=== PATIENT | female | born 1960 | race Caucasian/White ===

== ENCOUNTER 2018-10-04 08:30 | Outpatient (CLI) | payer OTHER ==
[2018-10-04] MEDS ORDERED: GADOBUTROL 7.5 MMOL/7.5 ML PFS ONE (09:45)
== END 2018-10-04 23:59 | disposition home or self-care (01) ==
LOC: RAD 08:30
PROVIDERS: ATTEND Registered Nurse Registered Nurse First Assistant
DX: M51.16 Intervertebral disc disorders with radiculopathy, lumbar region (principal); M47.26 Other spondylosis with radiculopathy, lumbar region; M48.061 Spinal stenosis, lumbar region without neurogenic claudication; M48.07 Spinal stenosis, lumbosacral region; I10 Essential (primary) hypertension; J45.909 Unspecified asthma, uncomplicated; Z91.048 Other nonmedicinal substance allergy status
CPT/HCPCS: 72110; 72158; A9585

== ENCOUNTER → 2019-02-03 | Outpatient (CLI) | payer OTHER ==
[~2019-02-03] MED LIST: BECL10.62 INH; CYCL5TAB PO; GABA600T7 PO; LINA290C PO; LOSA50TA14 PO; VERA240C4 PO
[2019-02-03 13:41] LABS: MICROSCOPIC NOT IND
[2019-02-03 13:46] LABS: CULTURE INDICATED? NO
[2019-02-03 14:03] LABS: BASOPHILS # (AUTO) 0.03 x10^3/uL (0-0.1); BASOPHILS % (AUTO) 1 % (0-1); EOSINOPHILS # (AUTO) 0.05 x10^3/uL (0-0.4); EOSINOPHILS % (AUTO) 1 % (1-7); LYMPHOCYTES # (AUTO) 1.66 x10^3/uL (1-3.4); LYMPHOCYTES % (AUTO) 34 % (22-44); MD NO; MEAN CORPUSCULAR HEMOGLOBIN 39.8 pg (27.0-34.8); MEAN CORPUSCULAR HGB CONC 35.7 g/dL (32.4-35.8); MEAN CORPUSCULAR VOLUME 111.6 fL (80-100); MEAN PLATELET VOLUME 7.1 fL (7.4-10.4); MONOCYTES # (AUTO) 0.35 x10^3/uL (0.2-0.8); MONOCYTES % (AUTO) 7 % (2-9); NEUTROPHILS # (AUTO) 2.76 x10^3/uL (1.8-6.8); NEUTROPHILS % (AUTO) 57 % (42-75); PLATELET COUNT 335 x10^3/uL (130-400); RED BLOOD COUNT 3.36 x10^6/uL (3.82-5.3); RED CELL DISTRIBUTION WIDTH 13.9 % (9.6-15.2)
[2019-02-03 14:07] LABS: ALBUMIN 3.9 g/dL (3.4-5.0); ANION GAP 8 mmol/L (5-15); CALCIUM 9.2 mg/dL (8.5-10.1); CHLORIDE 107 mmol/L (98-107)
[2019-02-03 14:09] LABS: INTERNATIONAL NORMALIZED RATIO 0.99 (0.93-1.1); PROTHROMBIN TIME 10.4 Seconds (9.6-11.5)
[2019-02-03 14:11] LABS: ALANINE AMINOTRANSFERASE 55 U/L (12-78); ALKALINE PHOSPHATASE 39 U/L (45-117); BILIRUBIN,TOTAL 0.6 mg/dL (0.2-1.0); CREATININE 0.68 mg/dL (0.55-1.02); TOTAL PROTEIN 6.8 g/dL (6.4-8.2)
== END | disposition home or self-care (01) ==
LOC: STAR 12:23
PROVIDERS: ATTEND Neurological Surgery
DX: Z01.818 Encounter for other preprocedural examination (principal); I21.09 ST elevation (STEMI) myocardial infarction involving other coronary artery of anterior wall; M47.814 Spondylosis without myelopathy or radiculopathy, thoracic region; M51.36 Other intervertebral disc degeneration, lumbar region; I10 Essential (primary) hypertension
CPT/HCPCS: 36415; 71046; 80053; 81003; 85025; 85610; 85730; 93005

== ENCOUNTER 2019-02-16 05:32 | Day surgery (SDC) | payer OTHER ==
[~2019-02-16] VITALS: Ht 167.6 cm; Wt 55.1 kg
[2019-02-16] MEDS ORDERED: LACTATED RINGERS 1,000 ML IV SCH (06:18)
[2019-02-16] MEDS ORDERED: BUPIVACAINE/PF 0.25% ONE (06:20)
[2019-02-16 06:21] VITALS: BP 144/88
[2019-02-16] MEDS ORDERED: THROMBIN 5,000 UNIT VIAL TP ONE (06:21)
[2019-02-16] MEDS ORDERED: BACITRACIN 50,000 UNIT ONE (06:21)
[2019-02-16] MEDS ORDERED: EPINEPHRINE 1 MG/ML, 1ML ONE (06:21)
[2019-02-16] MEDS ORDERED: VANCOMYCIN 1,000 MG ONE (06:21)
[2019-02-16] MEDS ORDERED: MIDAZOLAM 1 MG/ML, 2ML ONE (06:58)
[2019-02-16] MEDS ORDERED: FENTANYL PF 250 MCG/5ML ONE (06:58)
[2019-02-16] MEDS ORDERED: MEPERIDINE/PF 25MG/0.5ML IVPush PRN (07:00)
[2019-02-16] MEDS ORDERED: ACETAMINOPHEN 500 MG TABLET PO ONE (07:00)
[2019-02-16] MEDS ORDERED: FENTANYL PF 100 MCG/2ML IV PRN (07:00)
[2019-02-16] MEDS ORDERED: LABETALOL 5MG/ML, 20ML IV PRN (07:00)
[2019-02-16] MEDS ORDERED: ALBUTEROL SULFATE 2.5 MG/3 ML NPPB PRN (07:00)
[2019-02-16] MEDS ORDERED: PROMETHAZINE 25 MG/ML, 1ML IV PRN (07:00)
[2019-02-16] MEDS ORDERED: GABAPENTIN 300 MG CAPSULE PO ONE (07:00)
[2019-02-16] MEDS ORDERED: HALOPERIDOL 5 MG/ML IV PRN (07:00)
[2019-02-16] MEDS ORDERED: hydrALAzine 20 MG/ML, 1ML IV PRN (07:00)
[2019-02-16] MEDS ORDERED: PROCHLORPERAZINE 5 MG/ML, 2ML IV PRN (07:00)
[2019-02-16] MEDS ORDERED: OXYcodone 5 MG/5 ML ORAL.SOL UDC PO PRN (07:00)
[2019-02-16] MEDS ORDERED: DIPHENHYDRAMINE 50 MG/ML, 1ML IVPush PRN (07:00)
[2019-02-16] MEDS ORDERED: METOPROLOL 1 MG/ML, 5ML IV PRN (07:00)
[2019-02-16] MEDS ORDERED: BUPIVACAINE/PF 0.25% INFIL ONE ×2 (07:31)
[2019-02-16] MEDS ORDERED: FENTANYL PF 100 MCG/2ML ONE (07:52)
[2019-02-16] MEDS ORDERED: methylPREDNISolone SOD SUCC 125 MG/2 ML ONE (07:53)
[2019-02-16] MEDS ORDERED: PROPOFOL 10 MG/ML, 20ML ONE (07:59)
[2019-02-16] MEDS ORDERED: methylPREDNISolone SOD SUCC 125 MG/2 ML IVPush ONE (07:59)
[2019-02-16] MEDS ORDERED: DEXAMETHASONE 4 MG/ML, 1ML ONE (07:59)
[2019-02-16] MEDS ORDERED: ONDANSETRON 2MG/ML, 2ML ONE (07:59)
[2019-02-16] MEDS ORDERED: SUCCINYLCHOLINE 20 MG/ML, 10ML ONE (07:59)
[2019-02-16] MEDS ORDERED: CEFAZOLIN 1,000 MG ONE (07:59)
[2019-02-16] MEDS ORDERED: GLYCOPYRROLATE 0.2MG/1ML, 5ML ONE ×2 (07:59→08:04)
[2019-02-16] MEDS ORDERED: ROCURONIUM 10MG/ML,5ML ONE (07:59)
[2019-02-16] MEDS ORDERED: NEOSTIGMINE 1 MG/ML, 10ML ONE ×2 (07:59→08:04)
[2019-02-16] MEDS ORDERED: SUGAMMADEX 200 MG/2 ML IVPush ONE (08:00)
[2019-02-16] MEDS ORDERED: FENTANYL PF 100 MCG/2ML EPIDPUSH ONE (08:00)
[2019-02-16] MEDS ORDERED: BACITRACIN ZINC OINT 500U/GM, 0.9 GM ONE (08:27)
[2019-02-16] MEDS ORDERED: CYCL-259 PO (08:35)
[2019-02-16] MEDS ORDERED: OXYC-432 PO (08:35)
[2019-02-16] MEDS ORDERED: HYDROmorphone 2 MG/ML, 1ML ONE (08:44)
[2019-02-16] MEDS ORDERED: OXYcodone 5 MG/5 ML ORAL.SOL UDC ONE (08:45)
[2019-02-16] MEDS: HYDROmorphone 2 MG/ML, 1ML IVPush PRN ×2 (08:49→09:01)
== END 2019-02-16 11:35 | disposition home or self-care (01) ==
LOC: OUT 05:32
PROVIDERS: ATTEND Neurological Surgery
DX: M54.16 Radiculopathy, lumbar region (principal); M48.061 Spinal stenosis, lumbar region without neurogenic claudication; I10 Essential (primary) hypertension; J45.909 Unspecified asthma, uncomplicated; Z87.39 Personal history of other diseases of the musculoskeletal system and connective tissue; Z98.890 Other specified postprocedural states; Z72.89 Other problems related to lifestyle
CPT/HCPCS: 63047; 72100; J0171; J0330; J0690; J1100; J1170; J2250; J2405; J2704; J2710; J2930; J3010; J3490; J7120; J3370

== ENCOUNTER 2020-04-08 17:20 | Day surgery (SDC) | payer OTHER ==
[~2020-04-08] VITALS: Ht 167.6 cm; Wt 54.0 kg
[~2020-04-08 17:20] MED LIST changes: +CYCL-259 PO; +OXYC1TAB18 PO
[2020-04-08] MEDS ORDERED: ONDANSETRON 2MG/ML, 2ML ONE ×2 (17:38→22:44)
[2020-04-08] MEDS ORDERED: MORPHINE SULFATE 4 MG/ML, 1ML ONE ×2 (17:39→17:47)
[2020-04-08] MEDS: MORPHINE SULFATE 4 MG/ML, 1ML IVPush PRN ×2 (17:43→18:00)
--- NOTE | 2020-04-08 17:45 | NUR ---
PATIENT MEDICATED PER EMAR, PRIOR TO XRAY
--- NOTE | 2020-04-08 17:53 | NUR ---
THIS IS A 59 YO FEMALE BIB [facility] FROM HOME FOR LEFT HIP DISLOCATION AFTER SHOWER. PATIENT HAD HIP REPLACEMENT SX IN JANUARY 2020, THIS IS THE THIRD DISLOCATION SINCE SX ALL REQUIRING CONSCIOUS SEDATION FOR REDUCTION. 200MCG FENTANYL GIVEN EN ROUTE, 1MG VERSED. MEDICAL HX CONSISTS OF HTN AND ASTHMA. A&OX4, VSS, NADN AT THIS TIME. ALL MONITORING IN PLACE, NSR ON UTILIZATION SPECIALIST. CALL LIGHT IN REACH
--- NOTE | 2020-04-08 17:54 | NUR ---
BESSEMER CONVERTER OPERATOR IN ROOM
[2020-04-08] MEDS ORDERED: ONDANSETRON 2MG/ML, 2ML IVPush ONE (18:00)
--- NOTE | 2020-04-08 18:05 | NUR ---
COMPUTER NETWORK SUPPORT SPECIALIST BUMPED MACHINE INTO PATIENT CAUSING ACUTE PAIN, GIVEN SECOND DOSE OF MORPHINE
[2020-04-08] MEDS ORDERED: PROPOFOL 10 MG/ML, 20ML IVPush ONE (18:30)
[2020-04-08] MEDS ORDERED: PROPOFOL 10 MG/ML, 20ML ONE ×4 (18:36→22:44)
[2020-04-08] MEDS ORDERED: KETAMINE 10 MG/ML, 20ML ONE (19:41)
--- NOTE | 2020-04-08 20:14 | NUR ---
1923: SEDATATION ADMINISTERED BY DR. CORNEJO. TOTAL OF 140MG PROPOFOL GIVEN. PATIENT BECAME HYPOTENSIVE HALF WAY THROUGH PROCEDURE, AND SLOWED BREATHING. BREATHS GIVEN WITH AMBU BAG UNTIL PATIETN BREATHING ON OWN AGIAN, PLACED IN TRENDELENBERG AND IVF GIVEN. ABLE TO REDUCE. UPON REPEAT XRAY, LEFT HIP IS STILL DISPLACED. VSS AFTER INTERVENTIONS. 1944: SEDATION ADMINSTERED BY DR. CORNEJO, GIVEN 40MG PROPOFOL AND 60MG KETAMINE. PATIENT MAINTAINED BP THROUGHOUT PROCEDURE, BECAME APNIC, RESCUE BREATHS GIVEN UNTIL BREATHING ON OWN. UNABLE TO REDUCE HIP. DR. CORNEJO TO CONSULT WITH ORTHO FOR OR REDUCTION.
--- NOTE | 2020-04-08 20:22 | NUR ---
SEE VITAL SIGNS PRINT OUT ATTATCHED TO SEDATION PAPERWORK
--- NOTE | 2020-04-08 20:23 | NUR ---
CO2 MONITOR IN PLACE THROUGHOUT ENTIRE PROCEDURE
--- NOTE | 2020-04-08 20:30 | NUR ---
PATIENT RECOVERED, WAITING FOR ORTHO CONSULT
--- NOTE | 2020-04-08 20:35 | NUR ---
TOTAL OF 140MG PROPOFOL GIVEN, 60MG KETAMINE GIVEN. RECORDED REMAINING WASTE WITH NADIRA ANGUIANO RN.
--- NOTE | 2020-04-08 21:22 | NUR ---
ERP DISCUSSED WITH ORTHO MD, WILL ATTEMPT TO REDUCE HIP AGAIN
--- NOTE | 2020-04-08 21:35 | NUR ---
2124: DRI. CORNEJO ADMINISTERED SEDATION, ORTHO MD ATTEMPTED TO REDUCE. LEFT HIP IS NON-REDUCIBLE IN ER. MD WILL CONTACT OR. VSS THROUGHOUT THIS PROCEDURE. SEE VITAL SIGN PRINTOUT ATTATCHED TO SEDATION PACKET Addendum: 04/08/20 at 2208 by DORYS TOTAL OF 100MG PROPOFOL GIVEN FOR THIS REDUCTION
--- NOTE | 2020-04-08 21:55 | NUR ---
REPORT GIVEN TO POLICE CHIEF. RAPID COVID COLLECTED AND SENT TO LAB
[2020-04-08] MEDS ORDERED: FENTANYL PF 100 MCG/2ML ONE (22:07)
[2020-04-08 22:08] VITALS: BP 119/52
[2020-04-08] MEDS ORDERED: MEPERIDINE/PF 25MG/0.5ML IVPush PRN (22:30)
[2020-04-08] MEDS ORDERED: PROMETHAZINE 25 MG/ML, 1ML IVPush PRN (22:30)
[2020-04-08] MEDS ORDERED: ACETAMINOPHEN 325 MG TABLET PO PRN (22:30)
[2020-04-08] MEDS ORDERED: HYDROmorphone 1 MG/ML, 1ML INJ IVPush PRN (22:30)
[2020-04-08] MEDS ORDERED: OXYcodone 5 MG/5 ML ORAL.SOL UDC PO PRN (22:30)
[2020-04-08] MEDS ORDERED: ONDANSETRON 2MG/ML, 2ML IVPush PRN (22:30)
[2020-04-08] MEDS ORDERED: LABETALOL 5MG/ML, 20ML IV PRN (22:30)
[2020-04-08] MEDS ORDERED: EPHEDRINE 50 MG/ML, 1ML IVPush PRN (22:30)
[2020-04-08] MEDS ORDERED: FENTANYL PF 100 MCG/2ML IV PRN (22:30)
[2020-04-08] MEDS ORDERED: hydrALAzine 20 MG/ML, 1ML IV PRN (22:30)
[2020-04-08] MEDS ORDERED: KETOROLAC 30 MG/1 ML ONE (22:44)
[2020-04-08] MEDS ORDERED: SUCCINYLCHOLINE 20 MG/ML, 10ML ONE (22:44)
[2020-04-09] MEDS ORDERED: ONDANSETRON 2MG/ML, 2ML IVPush PRN
[2020-04-09] MEDS ORDERED: HYDROmorphone 1 MG/ML, 1ML INJ IM PRN
[2020-04-09] MEDS ORDERED: OXYcodone 5 MG/5 ML ORAL.SOL UDC PO PRN
[2020-04-09] MEDS ORDERED: HYDR-3240 PO (00:11)
[2020-04-09] MEDS ORDERED: FLUTICASONE FUROATE 100MCG/INH INH SCH (09:00)
[2020-04-09] MEDS ORDERED: VERAPAMIL ER 240MG TABLET.ER PO SCH (09:00)
[2020-04-09] MEDS ORDERED: LINZESS 290 MCG CAP HOMEMEDPO SCH (09:00)
[2020-04-09] MEDS ORDERED: GABAPENTIN 300 MG CAPSULE PO SCH (09:00)
[2020-04-09] MEDS ORDERED: LOSARTAN 50MG TABLET PO SCH (09:00)
[2020-04-25] MEDS ORDERED: MONT10TA11 PO (12:42)
[2020-04-25] MEDS ORDERED: NEBI5TAB3 PO (12:42)
[2020-04-25] MEDS ORDERED: ACET650S21 PO (12:43)
== END 2020-04-09 01:00 | disposition home or self-care (01) ==
LOC: ED 18:16 → INTOOBSV 22:05 → OUT 22:05 → UNDOADMOB 22:05 → EDIP 22:05 → 4NE 23:15 → OUT 04-09 01:00 → UNDODISOB 04-09 01:00
PROVIDERS: ATTEND Student in an Organized Health Care Education/Training Program
DX: T84.021A Dislocation of internal left hip prosthesis, initial encounter (principal); Z20.828 Contact with and (suspected) exposure to other viral communicable diseases; M21.372 Foot drop, left foot; I10 Essential (primary) hypertension; J45.909 Unspecified asthma, uncomplicated; Z79.891 Long term (current) use of opiate analgesic; Z79.899 Other long term (current) drug therapy; Y83.8 Other surgical procedures as the cause of abnormal reaction of the patient, or of later complication, without mention of misadventure at the time of the procedure
CPT/HCPCS: 27266; 72170; 73501; 73502; 76000; 87635; 96374; 96375; 99285; J0330; J1885; J2270; J2405; J2704; J3010; G0378

== ENCOUNTER → 2020-04-25 | Outpatient (CLI) | payer OTHER ==
[~2020-04-25] MED LIST changes: +ACET650S21 PO; +HYDR-3240 PO; +MONT10TA11 PO; +NEBI5TAB3 PO
[2020-04-25 12:52] LABS: BASOPHILS # (AUTO) 0.05 x10^3/uL (0-0.1); BASOPHILS % (AUTO) 1 % (0-1); EOSINOPHILS # (AUTO) 0.03 x10^3/uL (0-0.4); EOSINOPHILS % (AUTO) 1 % (1-7); LYMPHOCYTES # (AUTO) 1.29 x10^3/uL (1-3.4); LYMPHOCYTES % (AUTO) 23 % (22-44); MD NO; MEAN CORPUSCULAR HEMOGLOBIN 36.5 pg (27.0-34.8); MEAN CORPUSCULAR HGB CONC 34.4 g/dL (32.4-35.8); MEAN PLATELET VOLUME 7.1 fL (7.4-10.4); MONOCYTES # (AUTO) 0.29 x10^3/uL (0.2-0.8); MONOCYTES % (AUTO) 5 % (2-9); NEUTROPHILS # (AUTO) 4.07 x10^3/uL (1.8-6.8); NEUTROPHILS % (AUTO) 71 % (42-75); PLATELET COUNT 395 x10^3/uL (130-400); RED CELL DISTRIBUTION WIDTH 13.7 % (9.6-15.2)
[2020-04-25 12:57] LABS: INTERNATIONAL NORMALIZED RATIO 1.04 (0.93-1.1); PROTHROMBIN TIME 10.7 Seconds (9.6-11.5)
[2020-04-25 12:58] LABS: CHLORIDE 104 mmol/L (98-107)
[2020-04-25 13:07] LABS: ALANINE AMINOTRANSFERASE 55 U/L (12-78); ALBUMIN 4.3 g/dL (3.4-5.0); ALKALINE PHOSPHATASE 49 U/L (45-117); ANION GAP 6 mmol/L (5-15); BILIRUBIN,TOTAL 0.5 mg/dL (0.2-1.0); CALCIUM 9.7 mg/dL (8.5-10.1); CREATININE 0.67 mg/dL (0.55-1.02); TOTAL PROTEIN 7.6 g/dL (6.4-8.2)
== END | disposition home or self-care (01) ==
LOC: STAR 11:15
PROVIDERS: ATTEND Orthopaedic Surgery
DX: Z01.818 Encounter for other preprocedural examination (principal); T84.195A Other mechanical complication of internal fixation device of left femur, initial encounter; Q65.6 Congenital unstable hip; Z96.642 Presence of left artificial hip joint; R00.1 Bradycardia, unspecified; R94.31 Abnormal electrocardiogram [ECG] [EKG]
CPT/HCPCS: 36415; 80053; 83036; 85025; 85610; 85730; 87081; 93005

== ENCOUNTER → 2020-04-27 | Outpatient (CLI) | payer OTHER | END | disposition home or self-care (01) | LOC: STAR 13:05 | PROVIDERS: ATTEND Orthopaedic Surgery | DX: Z01.812 Encounter for preprocedural laboratory examination (principal); Z20.828 Contact with and (suspected) exposure to other viral communicable diseases | CPT/HCPCS: 36415; 87635 ==

== ENCOUNTER 2020-05-02 09:46 | Inpatient (IN) | payer OTHER ==
[2020-04-25 12:43] VITALS: BP 181/89
[~2020-05-02] VITALS: Ht 167.6 cm; Wt 66.1 kg
[2020-05-02] MEDS: LOSARTAN 50MG TABLET PO SCH ×2 (09:00→21:35)
[2020-05-02] MEDS: BECLOMETHASONE DIPROPIONATE 80 MCG HOMEINH SCH ×2 (09:00→21:00)
[~2020-05-02 09:46] MED LIST changes: +ACETAMINOPHEN 650 MG/20.3 ML UDC PO PRN; +BISACODYL 10 MG SUPP PR PRN; +DIPHENHYDRAMINE 50 MG CAPSULE PO PRN; +EPINEPHRINE 1 MG/ML, 1ML ONE; +HYDROcodone/APAP 5/325 TABLET PO PRN; +KETOROLAC 60 MG/2 ML ONE; +MAGNESIUM HYDROXIDE 8%, 30ML UDC PO PRN; +MONTELUKAST 10 MG TABLET PO SCH; +ONDANSETRON 2MG/ML, 2ML IV PRN; +ONDANSETRON 4 MG TABLET PO PRN; +ROPIvacaine/PF 0.5%, 30 ML ONE; +SENNA/DOCUSATE TABLET PO PRN; +SODIUM CHLORIDE 0.9% 50 ML ONE; +TRANEXAMIC ACID 100 MG/ML, 10ML ONE; +VANCOMYCIN 1,000 MG ONE; +VERAPAMIL HCL 240 MG PO SCH; +ZOLPIDEM 5MG TABLET PO PRN
[2020-05-02] MEDS ORDERED: VANCOMYCIN PER PHARMACY MC STA (10:28)
[2020-05-02] MEDS ORDERED: GABAPENTIN 300 MG CAPSULE PO ONE (10:30)
[2020-05-02] MEDS ORDERED: ACETAMINOPHEN 500 MG TABLET PO ONE (10:30)
[2020-05-02] MEDS ORDERED: CHLORHEXIDINE 15 ML UDC ONE (10:39)
[2020-05-02] MEDS ORDERED: MIDAZOLAM 1 MG/ML, 2ML ONE (10:41)
[2020-05-02] MEDS ORDERED: FENTANYL PF 250 MCG/5ML ONE ×2 (10:42→11:29)
[2020-05-02] MEDS ORDERED: ROCURONIUM 10 MG/ML,10ML ONE (10:46)
[2020-05-02] MEDS ORDERED: VANCOMYCIN PMX 1GM/200ML 200 ML IV ONE (11:00)
[2020-05-02] MEDS ORDERED: DEXAMETHASONE 4 MG/ML, 1ML ONE (11:14)
[2020-05-02] MEDS ORDERED: SUCCINYLCHOLINE 20 MG/ML, 10ML ONE (11:14)
[2020-05-02] MEDS ORDERED: NEOSTIGMINE 1 MG/ML, 10ML ONE (11:14)
[2020-05-02] MEDS ORDERED: GLYCOPYRROLATE 0.2MG/1ML, 5ML ONE (11:14)
[2020-05-02] MEDS ORDERED: PROPOFOL 10 MG/ML, 20ML ONE (11:14)
[2020-05-02] MEDS ORDERED: CEFAZOLIN 1,000 MG ONE (11:14)
[2020-05-02] MEDS ORDERED: ONDANSETRON 2MG/ML, 2ML ONE (11:14)
[2020-05-02] MEDS ORDERED: PROPOFOL 50 ML ONE (11:19)
[2020-05-02] MEDS: FENTANYL PF 100 MCG/2ML IV PRN ×2 (12:26→12:38)
[2020-05-02] MEDS ORDERED: FENTANYL PF 100 MCG/2ML ONE (12:29)
[2020-05-02] MEDS ORDERED: OXYcodone 5 MG/5 ML ORAL.SOL UDC PO PRN (12:30)
[2020-05-02] MEDS ORDERED: MEPERIDINE/PF 25MG/0.5ML IVPush PRN (12:30)
[2020-05-02] MEDS ORDERED: LABETALOL 5MG/ML, 20ML IV PRN (12:30)
[2020-05-02] MEDS ORDERED: HYDROmorphone 1 MG/ML, 1ML INJ IVPush PRN (12:30)
[2020-05-02] MEDS ORDERED: PROMETHAZINE 25 MG/ML, 1ML IVPush PRN (12:30)
[2020-05-02] MEDS ORDERED: METHOCARBAMOL 1,000 MG in DEXTROSE 5% 100 ML IV PRN (12:30)
[2020-05-02] MEDS ORDERED: hydrALAzine 20 MG/ML, 1ML IV PRN (12:30)
[2020-05-02] MEDS ORDERED: LORazepam 2 MG/ML, 1ML IVPush PRN (12:30)
[2020-05-02] MEDS ORDERED: PROMETHAZINE 12.5 MG SUPP PR PRN (12:30)
[2020-05-02] MEDS ORDERED: EPHEDRINE 50 MG/ML, 1ML IVPush PRN (12:30)
[2020-05-02] MEDS ORDERED: ACETAMINOPHEN 325 MG TABLET PO PRN (12:30)
[2020-05-02] MEDS ORDERED: HYDROmorphone 1 MG/ML, 1ML INJ ONE (13:03)
[2020-05-02] MEDS ORDERED: OXYcodone 5 MG/5 ML ORAL.SOL UDC ONE (13:03)
[2020-05-02] MEDS: DOCUSATE 100 MG CAPSULE PO SCH ×2 (16:25→21:34)
[2020-05-02] MEDS: NS + 20MEQ KCL 1,000 ML IV SCH (16:26)
[2020-05-02] MEDS: OXYcodone IR 5MG TABLET PO PRN ×2 (17:06→21:35)
[2020-05-02] MEDS: ASPIRIN 81 MG TABLET EC PO SCH (17:06)
[2020-05-02] MEDS: CEFAZOLIN PMX 2GM/50ML 50 ML IVPB SCH (19:11)
[2020-05-02 19:28] VITALS: BP_SYST 14; BP_SYST 140; BP_DIAS 67
[2020-05-02] MEDS: VERAPAMIL ER 240MG TABLET.ER PO SCH (21:34)
[2020-05-03 00:42] VITALS: BP 105/64
[2020-05-03] MEDS: OXYcodone IR 5MG TABLET PO PRN ×3 (02:49→10:19)
[2020-05-03] MEDS: CEFAZOLIN PMX 2GM/50ML 50 ML IVPB SCH (02:49)
[2020-05-03] MEDS: NS + 20MEQ KCL 1,000 ML IV SCH (02:53)
[2020-05-03 04:28] VITALS: BP 121/57
[2020-05-03] MEDS ORDERED: NEBIVOLOL HCL 5 MG TABLET PO SCH (06:00)
[2020-05-03] MEDS ORDERED: DEXAMETHASONE 4 MG/ML, 1ML IVPush SCH (06:00)
[2020-05-03] MEDS: ASPIRIN 81 MG TABLET EC PO SCH (06:37)
[2020-05-03] MEDS: BECLOMETHASONE DIPROPIONATE 80 MCG HOMEINH SCH (06:56)
[2020-05-03 07:33] VITALS: BP 133/75
[2020-05-03] MEDS: LOSARTAN 50MG TABLET PO SCH (07:54)
[2020-05-03] MEDS: DOCUSATE 100 MG CAPSULE PO SCH (07:54)
[2020-05-03] MEDS: VERAPAMIL ER 240MG TABLET.ER PO SCH (07:54)
== END 2020-05-03 10:55 | disposition home or self-care (01) | DRG 468 ==
LOC: OUT 09:46 → 4NE 14:12 → OUT 23:19 → 4NE 23:19 → DCLOUNGE 05-03 10:43
PROVIDERS: ADMIT Orthopaedic Surgery; ATTEND Orthopaedic Surgery
PROC: 0SPE0JZ Removal of Synthetic Substitute from Left Hip Joint, Acetabular Surface, Open Approach (ICD-10-PCS; 2020-05-02)
PROC: 0SRE0JZ Replacement of Left Hip Joint, Acetabular Surface with Synthetic Substitute, Open Approach (ICD-10-PCS; principal; 2020-05-02 12:00)
DX: T84.195A Other mechanical complication of internal fixation device of left femur, initial encounter (principal); Y83.8 Other surgical procedures as the cause of abnormal reaction of the patient, or of later complication, without mention of misadventure at the time of the procedure; Z96.642 Presence of left artificial hip joint; G57.30 Lesion of lateral popliteal nerve, unspecified lower limb; Y92.89 Other specified places as the place of occurrence of the external cause
CPT/HCPCS: 36415; 72170; 85014; 85018; C1713; G0378; J0171; J0690; J1100; J1170; J1885; J2250; J2405; J2704; J2710; J2795; J3010; J3370; J3480; C1776; J0330; J2800